=== PATIENT | male | born 1965 | race Caucasian/White ===

== ENCOUNTER 2019-01-24 10:26 | Emergency (ER) | payer OTHER ==
--- NOTE | 2019-01-24 11:40 | C.PDOC ---
History Of Present Illness 53 y/o male comes in complaining of right lower back pain that radiates to his right leg since yesterday, after lifting heavy boxes weighing approximately 60 lbs. He reports the pain worsens with movement. Patient was seen at a hospital and was given flexeril 10mg and ibuprofen 400mg. He notes hes been taking the medications with no relief. He denies bladder or bowel incontinence, saddle anesthesia, or numbness or tingling of extremities. Time Seen by Provider: 01/24/19 11:06 Chief Complaint (Nursing): Back Pain History Per: Patient History/Exam Limitations: no limitations Onset/Duration Of Symptoms: Days Current Symptoms Are (Timing): Still Present Past Medical History Reviewed: Historical Data, Nursing Documentation, Vital Signs Vital Signs: Last Vital Signs Temp 97.6 F 01/24/19 10:30 Pulse 60 01/24/19 10:30 Resp 17 01/24/19 10:30 BP 114/78 01/24/19 10:30 Pulse Ox 99 01/24/19 10:30 - Medical History PMH: No Chronic Diseases Denies: Back Problems Family History: States: Unknown Family Hx - Social History Hx Tobacco Use: No Hx Alcohol Use: No Hx Substance Use: No - Immunization History Hx Tetanus Toxoid Vaccination: No Hx Influenza Vaccination: No Hx Pneumococcal Vaccination: No Review Of Systems Constitutional: Negative for: Fever, Chills Cardiovascular: Negative for: Chest Pain Respiratory: Negative for: Shortness of Breath Gastrointestinal: Negative for: Nausea, Vomiting, Abdominal Pain Genitourinary: Negative for: Dysuria, Incontinence (no bladder or bowel incontinence), Hematuria Musculoskeletal: Positive for: Back Pain (Right lower back pain, radiating to right leg). Negative for: Neck Pain Neurological: Negative for: Weakness, Numbness (or tingling) Physical Exam - Physical Exam Appears: Non-toxic, Other (uncomfortable) Skin: Warm, Dry Head: Atraumatic, Normacephalic Eye(s): bilateral: Normal Inspection Oral Mucosa: Moist Neck: No Midline Cervical Tenderness, Supple Cardiovascular: Rhythm Regular, No Murmur Respiratory: Normal Breath Sounds, No Rales, No Rhonchi, No Wheezing Gastrointestinal/Abdominal: Soft, No Tenderness, No Guarding, No Rebound Back: No CVA Tenderness, Other (lidoderm-like patch across lower back; tenderness to right paralumbar area ) Extremity: Normal ROM, No Pedal Edema, No Calf Tenderness Extremity: Bilateral: Atraumatic, Normal Color And Temperature, Normal ROM Pulses: Left Dorsalis Pedis: Normal, Right Dorsalis Pedis: Normal Neurological/Psych: Oriented x3, Normal Speech, Normal Cognition, Normal Motor (5/5 motor strength), Normal Sensation Gait: Steady ED Course And Treatment O2 Sat by Pulse Oximetry: 99 (RA) Pulse Ox Interpretation: Normal Medical Decision Making Medical Decision Making: Plan: --Toradol 30 mg IM --Valium 5 mg PO 1149 pt with decrease in pain. will d/c home with increased ibuprofen dose. pmd f/u Disposition Counseled Patient/Family Regarding: Diagnosis, Need For Followup, Rx Given - Disposition Referrals: Deniz Melendez MD [Staff Provider] - Disposition: HOME/ ROUTINE Disposition Time: 11:52 Condition: GOOD Additional Instructions: Take medications as prescribed. Do not drive or work while taking muscle relaxant (cyclobenzaprine). Avoid heavy lifting. Follow up with a primary care doctor. Take patch off back and apply warm compresses to painful area several times a day. Take 600 mg of ibuprofen in stead of 400 mg. 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 - Scribe Statement The provider has reviewed the documentation as recorded by the Scribtramaine Reardon All medical record entries made by the Scribe were at my direction and personally dictated by me. I have reviewed the chart and agree that the record accurately reflects my personal performance of the history, physical exam, medical decision making, and the department course for this patient. I have also personally directed, reviewed, and agree with the discharge instructions and disposition.
[2019-01-24 11:50] VITALS: BP 129/85; PULSE 54; RESP 20; TEMP 97.9
[2019-01-24 11:51] VITALS: O2SAT 99
== END 2019-01-24 11:59 | disposition home or self-care (01) ==
LOC: C.ER 10:26
DX: S33.5XXD Sprain of ligaments of lumbar spine, subsequent encounter (principal); X50.0XXD Overexertion from strenuous movement or load, subsequent encounter
CPT/HCPCS: 96372; 99283; J1885